=== PATIENT | male | born 1975 | race Caucasian/White ===

== ENCOUNTER 2018-06-15 07:36 | Emergency (ER) | payer BC ==
[2018-06-15 08:29] LABS: Absolute Lymphocytes (CBC) 3.9 K/uL (0.7-4.9); Absolute Monocytes 0.6 K/uL (0.1-1.3); Absolute Neutrophil 4.6 K/uL (1.8-8.0); Basophils % 0.6 % (0-1.3); Eosinophils % 3.1 % (0-4.4); Hematocrit 43.8 % (39.6-49.0); Lymphocytes % 41.1 % (15.3-44.8); MCH 25.7 pg (27.0-35.0); MCV 79.1 fL (80-100); MPV 8.2 fL (7.6-11.3); Monocytes % 6.6 % (3.3-12.3); RBC Red Blood Cell Count 5.55 M/uL (4.33-5.43)
[2018-06-15 08:52] LABS: ALT/SGPT 42 U/L (12-78); AST/SGOT 53 U/L (15-37); Albumin 3.5 g/dL (3.4-5.0); Alkaline Phosphatase 47 U/L (45-117); BUN Blood Urea Nitrogen 14 mg/dL (7-18); Bicarbonate 26 mmol/L (21-32); Bilirubin Direct < 0.1 mg/dL (0-0.2); Bilirubin Total 0.2 mg/dL (0.2-1.0); Glucose Level 95 mg/dL (74-106); Potassium 3.8 mmol/L (3.5-5.1); Protein, Total 6.9 g/dL (6.4-8.2); Sodium Level 140 mmol/L (136-145); Troponin (Emerg Dept Use Only) < 0.02 ng/mL (0.0-0.045)
--- NOTE | 2018-06-15 09:24 | ER ---
Nurse's Notes [facility] Name: Vic Frankel Jr Age: 43 yrs Sex: Male : 1975 Arrival Date: 06/15/2018 Time: 07:37 Bed 17 Private MD: Stewart Iarheta Diagnosis: Chest pain, unspecified Presentation: 06/15 07:45 Presenting complaint: Patient states: unable to sleep last night, hear heart pounding ss in ears/ head, pressure feeling in neck and episodic sharp pains in chest that began 0300. Transition of care: patient was not received from another setting of care. Onset of symptoms was June 14, 2018. Risk Assessment: Do you want to hurt yourself or someone else? Patient reports no desire to harm self or others. Initial Sepsis Screen: Does the patient meet any 2 criteria? No. Patient's initial sepsis screen is negative. Does the patient have a suspected source of infection? No. Patient's initial sepsis screen is negative. Care prior to arrival: None. 07:45 Method Of Arrival: Ambulatory ss 07:45 Acuity: TRISH 3 ss Historical: - Allergies: 07:47 No Known Allergies; ss - Home Meds: 07:47 Testosterone replacement [Active]; ss - PMHx: 07:47 Low testosterone; ss - PSHx: 07:47 R knee repair; ss - Immunization history:: Adult Immunizations up to date. - Social history:: Smoking status: Patient uses tobacco products, chewing tobacco. - Ebola Screening: : Patient denies exposure to infectious person Patient denies travel to an Ebola-affected area in the 21 days before illness onset. Screenin:48 Abuse screen: Denies threats or abuse. Denies injuries from another. Nutritional ss screening: No deficits noted. Tuberculosis screening: Never had TB. Fall Risk None identified. Assessment: 08:08 General: Appears in no apparent distress. comfortable, Behavior is calm, cooperative, em appropriate for age, Reports Denies fever. Pain: Denies pain. Neuro: Level of Consciousness is awake, alert, obeys commands, Oriented to person, place, time, situation, Reports headache Denies weakness dizziness. Cardiovascular: Reports nausea, palpitations, "chest pressure" Denies diaphoresis, lightheadedness, shortness of breath, Heart tones S1 S2 present Capillary refill < 3 seconds Patient's skin is warm and dry. Respiratory: Airway is patent Respiratory effort is even, unlabored, Respiratory pattern is regular, symmetrical, Breath sounds are clear bilaterally. Denies cough, pain with respiration. GI: Abdomen is flat, Reports nausea, Patient currently denies vomiting. : No signs and/or symptoms were reported regarding the genitourinary system. Derm: Skin is intact, Skin is pink, warm \\T\\ dry. Musculoskeletal: Circulation, motion, and sensation intact. Range of motion: intact in all extremities. 09:13 Reassessment: Patient appears in no apparent distress at this time. Patient and/or em family updated on plan of care and expected duration. Pain level reassessed. Patient is alert, oriented x 3, equal unlabored respirations, skin warm/dry/pink. Patient denies pain at this time. Vital Signs: 07:47 BP 142 / 97; Pulse 63; Resp 16; Pulse Ox 98% on R/A; Weight 94.8 kg; Height 5 ft. 7 in. ss (170.18 cm); Pain 0/10; 08:27 BP 130 / 87; Pulse 54; Resp 16; Pulse Ox 100% on R/A; Pain 0/10; em 09:14 BP 116 / 62; Pulse 51; Resp 20 S; Pulse Ox 96% on R/A; Pain 0/10; em 07:47 Body Mass Index 32.73 (94.80 kg, 170.18 cm) ss ED Course: 07:37 Patient arrived in ED. mr 07:37 Stewart Iraheta MD is Private Physician. mr 07:46 Triage completed. ss 07:47 Arm band placed on right wrist. ss 07:48 Patient has correct armband on for positive identification. Placed in gown. Bed in low ss position. Call light in reach. Side rails up X 1. cook roast on. Pulse ox on. NIBP on. Warm blanket given. Head of bed elevated. 07:48 Patient maintains SpO2 saturation greater than 95% on room air. ss 07:49 Nickolas Cline LVN is Primary Nurse. em 07:53 Rico Agarwal MD is Attending Physician. gs 08:16 Initial lab(s) drawn, by me, sent to lab. Inserted saline lock: 20 gauge in right em antecubital area, using aseptic technique. Blood collected. 08:36 XRAY Chest (1 view) In Process Unspecified. EDMS 10:13 No provider procedures requiring assistance completed. IV discontinued, intact, la1 bleeding controlled, No redness/swelling at site. Pressure dressing applied. Administered Medications: No medications were administered Outcome: 09:23 Discharge ordered by . 10:13 Discharged to home ambulatory. la1 10:13 Condition: stable 10:13 Discharge instructions given to patient, Instructed on discharge instructions, follow up and referral plans. medication usage, Demonstrated understanding of instructions, follow-up care. 10:13 Patient left the ED. la1 Signatures: Dispatcher [employer] EDMI FranzDesirae jackson mr Son, Nickolas, PNEUMATIC RIVETER PNEUMATIC RIVETER Makenzie Rucker RN RN ss Attema, Lee, RN RN la1 Rico Agarwal MD MD
--- NOTE | 2018-06-15 09:24 | EDPHYS ---
Physician Documentation [facility] Name: Vic Frankel Jr Age: 43 yrs Sex: Male : 1975 Arrival Date: 06/15/2018 Time: 07:37 Bed 17 Private MD: Stewart Iraheta ED Physician Rico Agarwal HPI: 06/15 12:16 This 43 yrs old Male presents to ER via Ambulatory with complaints of Chest gs Pain. 12:16 The patient or guardian reports chest pain that is located primarily in the anterior gs chest wall. Onset: this morning. The pain does not radiate. Associated signs and symptoms: Pertinent negatives: abdominal pain, cough, diaphoresis, dizziness, lower extremity swelling, lightheadedness, nausea, shortness of breath, syncope, vomiting. The chest pain is described as dull. Duration: The patient or guardian reports multiple episodes, that are intermittent, that wax and wane, with no pattern, the episodes last approximately 5 second(s). Modifying factors: the symptoms are aggravated by twisting torso. Severity of pain: At its worst the pain was moderate in the emergency department the pain has resolved. The patient has not experienced similar symptoms in the past. Historical: - Allergies: 07:47 No Known Allergies; ss - Home Meds: 07:47 Testosterone replacement [Active]; ss - PMHx: 07:47 Low testosterone; ss - PSHx: 07:47 R knee repair; ss - Immunization history:: Adult Immunizations up to date. - Social history:: Smoking status: Patient uses tobacco products, chewing tobacco. - Ebola Screening: : Patient denies exposure to infectious person Patient denies travel to an Ebola-affected area in the 21 days before illness onset. ROS: 12:16 All other systems are negative. gs Exam: 12:16 Head/Face: Normocephalic, atraumatic. Eyes: Pupils equal round and reactive to light, gs extra-ocular motions intact. Lids and lashes normal. Conjunctiva and sclera are non-icteric and not injected. Cornea within normal limits. Periorbital areas with no swelling, redness, or edema. ENT: Nares patent. No nasal discharge, no septal abnormalities noted. Tympanic membranes are normal and external auditory canals are clear. Oropharynx with no redness, swelling, or masses, exudates, or evidence of obstruction, uvula midline. Mucous membranes moist. Neck: Trachea midline, no thyromegaly or masses palpated, and no cervical lymphadenopathy. Supple, full range of motion without nuchal rigidity, or vertebral point tenderness. No Meningismus. Chest/axilla: Normal chest wall appearance and motion. Nontender with no deformity. No lesions are appreciated. Cardiovascular: Regular rate and rhythm with a normal S1 and S2. No gallops, murmurs, or rubs. Normal PMI, no JVD. No pulse deficits. Respiratory: Lungs have equal breath sounds bilaterally, clear to auscultation and percussion. No rales, rhonchi or wheezes noted. No increased work of breathing, no retractions or nasal flaring. Abdomen/GI: Soft, non-tender, with normal bowel sounds. No distension or tympany. No guarding or rebound. No evidence of tenderness throughout. Back: No spinal tenderness. No costovertebral tenderness. Full range of motion. Skin: Warm, dry with normal turgor. Normal color with no rashes, no lesions, and no evidence of cellulitis. MS/ Extremity: Pulses equal, no cyanosis. Neurovascular intact. Full, normal range of motion. Neuro: Awake and alert, GCS 15, oriented to person, place, time, and situation. Cranial nerves II-XII grossly intact. Motor strength 5/5 in all extremities. Sensory grossly intact. Cerebellar exam normal. Normal gait. 12:16 Constitutional: The patient appears alert, awake. 12:16 ECG was reviewed by the Attending Physician. Vital Signs: 07:47 BP 142 / 97; Pulse 63; Resp 16; Pulse Ox 98% on R/A; Weight 94.8 kg; Height 5 ft. 7 in. ss (170.18 cm); Pain 0/10; 08:27 BP 130 / 87; Pulse 54; Resp 16; Pulse Ox 100% on R/A; Pain 0/10; em 09:14 BP 116 / 62; Pulse 51; Resp 20 S; Pulse Ox 96% on R/A; Pain 0/10; em 07:47 Body Mass Index 32.73 (94.80 kg, 170.18 cm) ss MDM: 08:18 Patient medically screened. gs 12:16 Differential diagnosis: acute myocardial infarction, coronary artery disease chest wall gs pain. Data reviewed: vital signs, nurses notes, lab test result(s), EKG, radiologic studies. Counseling: I had a detailed discussion with the patient and/or guardian regarding: the presence of at least one elevated blood pressure reading (>120/80) during this emergency department visit. Response to treatment: the patient's symptoms have resolved after treatment, the patient's pain is gone. Special discussion: I have referred the patient to see his PCP for further evaluation of high blood pressure. 06/15 08:10 Order name: Basic Metabolic Panel; Complete Time: 09:13 06/15 08:10 Order name: CBC with Diff; Complete Time: 09: 06/15 08:10 Order name: LFT's; Complete Time: : 06/15 08:10 Order name: Troponin (emerg Dept Use Only); Complete Time: 09: 06/15 08:10 Order name: XRAY Chest (1 view) 06/15 08:10 Order name: EKG; Complete Time: 08:11 06/15 08:10 Order name: Cardiac monitoring; Complete Time: 08:14 06/15 08:10 Order name: EKG - Nurse/Tech; Complete Time: 08:14 06/15 08:10 Order name: IV Saline Lock; Complete Time: 08:25 06/15 08:10 Order name: Labs collected and sent; Complete Time: 08:25 06/15 08:10 Order name: O2 Per Protocol; Complete Time: 08:15 06/15 08:10 Order name: O2 Sat Monitoring; Complete Time: 08:15 EC:16 Rate is 55 beats/min. Rhythm is regular. WI interval is normal. QRS interval is normal. QT interval is normal. T waves are Normal. No ST changes noted. Clinical impression: Normal ECG. Interpreted by me. Administered Medications: No medications were administered Disposition: 06/15/18 09:23 Discharged to Home. Impression: Chest pain, unspecified. - Condition is Stable. - Discharge Instructions: Nonspecific Chest Pain. - Medication Reconciliation Form, Thank You Letter, Antibiotic Education, Prescription Opioid Use form. - Follow up: Private Physician; When: 2 - 3 days; Reason: Re-evaluation by your physician. Signatures: Dispatcher [facility] Makenzie Becker RN RN ss Guy Bird RN RN la1 Rico Agarwal MD MD gs Corrections: (The following items were deleted from the chart) 10:13 09:23 06/15/2018 09:23 Discharged to Home. Impression: Chest pain, unspecified. la1 Condition is Stable. Forms are Medication Reconciliation Form, Thank You Letter, Antibiotic Education, Prescription Opioid Use. Follow up: Private Physician; When: 2 - 3 days; Reason: Re-evaluation by your physician. gs
--- NOTE | 2018-06-15 10:22 | RAD REPORT ---
EXAM DESCRIPTION: RAD - Chest Single View - 06/15/2018 8:36 am CLINICAL HISTORY: CHEST PAIN Chest pain. COMPARISON: No comparisons FINDINGS: Portable technique limits examination quality. The lungs are grossly clear. The heart is normal in size. No displaced fractures. IMPRESSION: No acute intrathoracic process suspected.
--- NOTE | 2018-06-15 20:21 | EKG ---
Test Date: 2018-06-15 Test Time: 08:12:34 Marketing Director: NEELAM MEASUREMENT RESULTS: Intervals: Rate: 55 IN: 184 QRSD: 84 QT: 380 QTc: 363 [place]: P: 52 IN: 184 QRS: 1 T: 34 INTERPRETIVE STATEMENTS: Sinus bradycardia Otherwise normal ECG Compared to ECG 10/08/1999 03:19:00 Myocardial infarct finding no longer present Electronically Signed On 06-15-18 20:20:28 BAND RIPSAW OPERATOR by Chidi Bardales
== END 2018-06-15 10:13 | disposition home or self-care (01) ==
LOC: ER 07:36
DX: R07.9 Chest pain, unspecified (principal); R00.1 Bradycardia, unspecified; F17.220 Nicotine dependence, chewing tobacco, uncomplicated
CPT/HCPCS: 36415; 71045; 80048; 80076; 84484; 85025; 93005; 99285

== ENCOUNTER 2024-12-07 11:41 | Inpatient (IN) | payer BC ==
[2024-12-07 12:28] LABS: Hemoglobin 16.3 g/dL (13.6-17.9); Lymphocytes % 16.6 % (15.3-44.8); MCH 24.4 pg (27.0-35.0); MCHC 32.6 g/dL (32.0-36.0); MCV 74.9 fL (80-100); MPV 7.9 fL (7.6-11.3); Neutrophils % 77.8 % (41.7-73.7); Platelets 224 thou/uL (152-406); RBC Red Blood Cell Count 6.68 M/uL (4.33-5.43); Red Cell Distribution Width 18.1 % (12.1-15.2)
[2024-12-07 12:29] LABS: Absolute Lymphocytes (CBC) 1.7 K/uL (0.7-4.9); Absolute Monocytes 0.5 K/uL (0.1-1.3); Absolute Neutrophil 8.1 K/uL (1.8-8.0); Basophils % 0.2 % (0-1.3); Eosinophils % 0.2 % (0-4.4); Monocytes % 5.2 % (3.3-12.3); Nucleated Red Blood Cells % 0.1 % (0-0)
[2024-12-07 12:45] LABS: Albumin/Globulin Ratio 1.2 (1.1-1.8); Anion Gap 8.1 mEq/L (5.0-15.0); Bilirubin Total 0.5 mg/dL (0.2-1.0); Globulin 3.4 g/dL (2.3-3.5); Potassium 4.1 mEq/L (3.5-5.1); Protein, Total 7.4 g/dL (6.4-8.2)
[2024-12-07 12:48] LABS: Specific Gravity 1.023 (1.005-1.030); Sqamous Epithelial None Seen /HPF (None Seen); Urine Bacteria None Seen /HPF (<20); Urine Bilirubin NEGATIVE (Negative); Urine Blood Negative (Negative); Urine Clarity Clear (Clear); Urine Color Yellow (Yellow); Urine Culture Reflex Order NOT NEEDED; Urine Glucose NEGATIVE (Negative); Urine Ketones NEGATIVE (Negative); Urine Microscopic Reflex YN ORDER UMIC; Urine Mucus 2+ /HPF (None Seen); Urine Nitrite NEGATIVE (Negative); Urine Protein TRACE (Negative); Urine RBC <5 /HPF (None Seen); Urine Urobilinogen 1+ (Normal); Urine WBC <5 /HPF (<5)
[2024-12-07] MEDS ORDERED: ONDANSETRON 4 MG/2 ML VIAL ONE (13:01)
[2024-12-07] MEDS ORDERED: MORPHINE 4 MG/ML SYR ONE (13:02)
--- NOTE | 2024-12-07 13:39 | RAD REPORT ---
EXAMINATION: CT ABDOMEN AND PELVIS WITH CONTRAST CLINICAL INDICATION: Abdominal pain TECHNIQUE: CT abdomen and pelvis was performed, after the administration of 100 cc Isovue-300.. Sagit ortiz and coronal reconstructions were obtained. One or more of the following dose reduction techniques were used: Automated exposure control, adjustment of the mA and kV according to patient si ze, and iterative reconstruction. Unless otherwise specified, incidental findings do not require dedicated imaging follow-up. [id number]. Oral contrast was not given which limits evaluation of bowel and appendix. COMPARISON: .None FINDINGS: Liver, spleen, pancreas, adrenals and kidneys appear unremarkable Normal appendix. Small umbilical hernia Small right inguinal hernia contains fat Several diverticula stem from colon. Mild stranding adjacent to the proximal sigmoid colon. A tiny ai r bubble lies adjacent to the sigmoid colon indicating a microperforation. It is contained within the sigmoid mesocolon. No free air into the peritoneal cavity. No abscess: IMPRESSION: Microperforation of a sigmoid diverticulum with mild adjacent inflammatory changes.
--- NOTE | 2024-12-07 14:42 | ER ---
Nurse's Notes [facility] Name: Vic Frankel Jr Age: 49 yrs Sex: Male : 1975 Arrival Date: 12/07/2024 Time: 11:41 Bed 24 Private MD: Diagnosis: Sigmoid diverticulitis with microperforation;Lower abdominal pain, unspecified Presentation: 12/07 11:54 Chief complaint: Sharp RLQ pain up waking 1 hour ago. Coronavirus screen: At this time, hb the client does not indicate any symptoms associated with coronavirus-19. Ebola Screen: No symptoms or risks identified at this time. Initial Sepsis Screen: Does the patient meet any 2 criteria? No. Patient's initial sepsis screen is negative. Does the patient have a suspected source of infection? No. Patient's initial sepsis screen is negative. Risk Assessment: Do you want to hurt yourself or someone else? Patient reports no desire to harm self or others. Onset of symptoms was December 07, 2024. 11:54 Method Of Arrival: Ambulatory hb 11:54 Acuity: TRISH 3 hb Historical: - Allergies: 11:55 No Known Allergies; hb - PMHx: 11:55 low testosterone; hb - PSHx: 11:56 None; hb - Immunization history:: Adult Immunizations up to date. - Infectious Disease History:: Denies. - Social history:: Smoking status: Patient denies any tobacco usage or history of. Screenin:10 [facility] ED Fall Risk Assessment (Adult) History of falling in the last 3 months, dd2 including since admission No falls in past 3 months (0 pts) Confusion or Disorientation No (0 pts) Intoxicated or Sedated No (0 pts) Impaired Gait No (0 pts) Mobility Assist Device Used No (0 pt) Altered Elimination No (0 pt) Score/Fall Risk Level 0 - 2 = Low Risk Oriented to surroundings, Maintained a safe environment, Educated pt \T\ family on fall prevention, incl call for assistance when getting out of bed, Assessed \T\ reinforced patient's understanding of fall precautions, Hourly rounding (assess needs \T\ fall precautionary measures) done. Abuse screen: Denies threats or abuse. Denies injuries from another. Nutritional screening: No deficits noted. Tuberculosis screening: No symptoms or risk factors identified. Assessment: 12:10 General: Appears in no apparent distress. uncomfortable, Behavior is calm, cooperative, dd2 appropriate for age. Pain: Complains of pain in right lower quadrant Pain does not radiate. Pain currently is 4 out of 10 on a pain scale. at worst was 8 out of 10 on a pain scale. Neuro: No deficits noted. Level of Consciousness is awake, alert, obeys commands, Oriented to person, place, time, situation, Appropriate for age. Cardiovascular: No deficits noted. Patient's skin is warm and dry. Respiratory: No deficits noted. Airway is patent Respiratory effort is even, unlabored, Respiratory pattern is regular, symmetrical. GI: Abdomen is non-distended, obese, Bowel sounds present X 4 quads. Abd is soft X 4 quads Abdomen is tender to palpation in right lower quadrant Abdomen has rebound tenderness in right lower quadrant Reports lower abdominal pain, nausea. : No deficits noted. No signs and/or symptoms were reported regarding the genitourinary system. EENT: No deficits noted. No signs and/or symptoms were reported regarding the EENT system. Derm: No deficits noted. No signs and/or symptoms reported regarding the dermatologic system. Musculoskeletal: No deficits noted. No signs and/or symptoms reported regarding the musculoskeletal system. Circulation, motion, and sensation intact. Range of motion: intact in all extremities. 13:57 Reassessment: Patient and/or family updated on plan of care and expected duration. Pain dd2 level reassessed. Patient is alert, oriented x 3, equal unlabored respirations, skin warm/dry/pink. Patient states symptoms have improved. Vital Signs: 11:54 BP 125 / 83; Pulse 68; Resp 16; Temp 98.7; Pulse Ox 100% on R/A; Weight 90.72 kg; hb Height 5 ft. 7 in. ; Pain 8/10; 13:15 BP 128 / 85; Pulse 72; Resp 16; Pulse Ox 99% on R/A; dd2 14:10 BP 118 / 83; Pulse 78; Resp 16; Pulse Ox 98% on R/A; dd2 15:25 BP 125 / 84; Pulse 75; Resp 15; Pulse Ox 96% on R/A; dd2 16:30 BP 126 / 80; Pulse 75; Resp 16; Pulse Ox 98% on R/A; dd2 17:30 BP 117 / 78; Pulse 73; Resp 16; Pulse Ox 99% on R/A; dd2 11:54 Body Mass Index 31.32 (90.72 kg, 170.18 cm) hb 11:54 Pain Scale: Adult hb [place] Coma Score: 12:10 Eye Response: spontaneous(4). Motor Response: obeys commands(6). Verbal Response: dd2 oriented(5). Total: 15. ED Course: 11:43 Patient arrived in ED. al6 11:46 Esau Pattesron DO is Attending Physician. ms3 11:55 Triage completed. hb 12:10 Patient has correct armband on for positive identification. Bed in low position. Call dd2 light in reach. Side rails up X 1. Provided Education on: PROCEDURES, LABS, . Client placed on continuous cardiac and pulse oximetry monitoring. NIBP monitoring applied. Door closed. Noise minimized. Warm blanket given. Pillow given. Verbal reassurance given. 12:23 DESIRAE BROWN, RN is Primary Nurse. dd2 12:23 No provider procedures requiring assistance completed. Initial lab(s) drawn, by me, dd2 sent to lab. Urine collected: clean catch specimen, clear. Inserted saline lock: 20 gauge in left antecubital area, using aseptic technique. Blood collected. Flushed with 10 mL NS. Patient maintains SpO2 saturation greater than 95% on room air. 12:23 CBC with Diff Sent. dd2 12:23 CMP Sent. dd2 12:23 UA Rfx Obey Cult if indicated Sent. dd2 13:15 CT Abd/Pelvis - IV Contrast Only In Process Unspecified. EDMS 14:41 Emilia Valerio MD is Hospitalizing Provider. ms3 18:10 Patient admitted, IV remains in place. dd2 Administered Medications: 13:06 Drug: morphine IVP or IV 4 mg IVP once over 4 mins Route: IVP; Infused Over: 4 mins; dd2 Site: left antecubital; 13:21 Follow up: Response: No adverse reaction dd2 13:06 Drug: Ondansetron IVP 4 mg IVP once; over 2 minutes Route: IVP; Site: left antecubital; dd2 13:21 Follow up: Response: No adverse reaction dd2 15:10 Drug: Piperacillin-Tazobactam IVPB 3.375 grams IVPB once over 60 mins; (mix in NS 100 dd2 mL) Route: IVPB; Infused Over: 60 mins; Site: left antecubital; 16:10 Follow up: IV Status: Completed infusion dd2 15:10 Drug: NS 0.9% IV 1000 ml IV at 125 ml/hr continuous; to be given as a bolus over 60 dd2 minutes Route: IV; Rate: 125 ml/hr; Site: left antecubital; 18:11 Follow up: IV Status: Infusion continued upon transfer dd2 Medication: 12:10 VIS not applicable for this client. dd2 Outcome: 14:42 Decision to Hospitalize by Provider. ms3 18:10 Admitted to ER Hold. Please see [facility] for further documentation. dd2 18:10 Condition: stable 18:10 Instructed on the need for admit, Demonstrated understanding of instructions, 20:57 Patient left the ED. vc1 Signatures: Dispatcher [employer] EDMS Jessica Hassan RN RN hb Sims, Marcus, DO ms3 Sho Tineo RN RN vc1 DESIRAE BROWN RN RN dd2 Breanne Adamson al6
--- NOTE | 2024-12-07 14:42 | EDPHYS ---
Physician Documentation [facility] Name: Vic Frankel Jr Age: 49 yrs Sex: Male : 1975 Arrival Date: 12/07/2024 Time: 11:41 Bed 24 Private MD: ED Physician Esau Patterson HPI: 12/07 11:59 This 49 yrs old Male presents to ER via Ambulatory with complaints of Abdominal Pain. [facility] 11:59 49-year-old male with past medical history of low testosterone presents to the [facility] emergency department for right lower quadrant abdominal pain that began on waking up. Patient states his pain is 7/10 and does not radiate. He denies nausea, vomiting. Patient's last oral intake was at 1 AM. He denies fevers or chills.. Historical: - Allergies: 11:55 No Known Allergies; hb - PMHx: 11:55 low testosterone; hb - PSHx: 11:56 None; hb - Immunization history:: Adult Immunizations up to date. - Infectious Disease History:: Denies. - Social history:: Smoking status: Patient denies any tobacco usage or history of. ROS: 11:59 Constitutional: Negative for fever, and chills. Cardiovascular: Negative for chest ms3 pain, and palpitations. Respiratory: Negative for shortness of breath, cough, wheezing, and pleuritic chest pain, 11:59 Abdomen/GI: Positive for abdominal pain, Negative for nausea, vomiting, and diarrhea, Exam: 11:59 Constitutional: This is a well developed, well nourished patient who is awake, alert, ms3 and in no acute distress. Cardiovascular: Regular rate and rhythm with a normal S1 and S2. No gallops, murmurs, or rubs. Normal PMI, no JVD. No pulse deficits. Respiratory: Lungs have equal breath sounds bilaterally, clear to auscultation and percussion. No rales, rhonchi or wheezes noted. No increased work of breathing, no retractions or nasal flaring. Skin: Warm, dry with normal turgor. Normal color with no rashes, no lesions, and no evidence of cellulitis. 11:59 Abdomen/GI: Inspection: abdomen appears normal, Bowel sounds: normal, Palpation: moderate abdominal tenderness, in the right lower quadrant, Vital Signs: 11:54 BP 125 / 83; Pulse 68; Resp 16; Temp 98.7; Pulse Ox 100% on R/A; Weight 90.72 kg; hb Height 5 ft. 7 in. ; Pain 8/10; 13:15 BP 128 / 85; Pulse 72; Resp 16; Pulse Ox 99% on R/A; dd2 14:10 BP 118 / 83; Pulse 78; Resp 16; Pulse Ox 98% on R/A; dd2 15:25 BP 125 / 84; Pulse 75; Resp 15; Pulse Ox 96% on R/A; dd2 16:30 BP 126 / 80; Pulse 75; Resp 16; Pulse Ox 98% on R/A; dd2 17:30 BP 117 / 78; Pulse 73; Resp 16; Pulse Ox 99% on R/A; dd2 11:54 Body Mass Index 31.32 (90.72 kg, 170.18 cm) hb 11:54 Pain Scale: Adult hb Magali Coma Score: 12:10 Eye Response: spontaneous(4). Motor Response: obeys commands(6). Verbal Response: dd2 oriented(5). Total: 15. MDM: 11:58 Medical Screening Exam initiated ms3 11:59 Differential diagnosis: appendicitis, bowel obstruction, myocardia ischemia or ms3 infarction, urinary tract infection. 16:08 Data reviewed: vital signs, nurses notes, lab test result(s), radiologic studies, CT ms3 scan, and as a result, I will admit patient. Consideration of Admission/Observation Patient was admitted/placed on observation. Management of patient was discussed with the following: Hospitalist: Dr Valerio. Manager Plan: Dr Patel. I considered the following discharge prescriptions or medication management in the emergency department Medications were administered in the Emergency Department. See MAR. Counseling: I had a detailed discussion with the patient and/or guardian regarding the historical points, exam findings, and any diagnostic results supporting the discharge/admit diagnosis, lab results, radiology results, the need for further work-up and treatment in the hospital. ED course: Discussed CT and lab findings with patient. Patient to patient understands and agrees with admission. All questions were answered. Discussed case with Dr. Patel and patient is to remain n.p.o. for gut healing.. 12/07 11:58 Order name: CBC with Diff; Complete Time: 13:27 ms3 12/07 11:58 Order name: CMP; Complete Time: 13:27 ms3 12/07 11:58 Order name: UA Rfx Obey Cult if indicated; Complete Time: 13:27 ms3 12/07 15:31 Order name: UA Rfx Obey Cult if indicated EDMS 12/07 15:31 Order name: Basic Metabolic Panel EDMS 12/07 15:31 Order name: Basic Metabolic Panel EDMS 12/07 15:31 Order name: Basic Metabolic Panel EDMS 12/07 15:31 Order name: Basic Metabolic Panel EDMS 12/07 15:31 Order name: CBC with Automated Diff EDMS 12/07 15:31 Order name: CBC with Automated Diff EDMS 12/07 15:31 Order name: CBC with Automated Diff EDMS 12/07 15:31 Order name: CBC with Automated Diff EDMS 12/07 15:31 Order name: Magnesium EDMS 12/07 15:31 Order name: Magnesium EDMS 12/07 15:31 Order name: Magnesium EDMS 12/07 15:31 Order name: Magnesium EDMS 12/07 11:58 Order name: CT Abd/Pelvis - IV Contrast Only; Complete Time: 14:30 ms3 12/07 15:27 Order name: CONS Physician Consult EDMS 12/07 11:58 Order name: IV Saline Lock; Complete Time: 12:23 ms3 12/07 11:58 Order name: Labs collected and sent; Complete Time: 12:23 ms3 Administered Medications: 13:06 Drug: morphine IVP or IV 4 mg IVP once over 4 mins Route: IVP; Infused Over: 4 mins; dd2 Site: left antecubital; 13:21 Follow up: Response: No adverse reaction dd2 13:06 Drug: Ondansetron IVP 4 mg IVP once; over 2 minutes Route: IVP; Site: left antecubital; dd2 13:21 Follow up: Response: No adverse reaction dd2 15:10 Drug: Piperacillin-Tazobactam IVPB 3.375 grams IVPB once over 60 mins; (mix in NS 100 dd2 mL) Route: IVPB; Infused Over: 60 mins; Site: left antecubital; 16:10 Follow up: IV Status: Completed infusion dd2 15:10 Drug: NS 0.9% IV 1000 ml IV at 125 ml/hr continuous; to be given as a bolus over 60 dd2 minutes Route: IV; Rate: 125 ml/hr; Site: left antecubital; 18:11 Follow up: IV Status: Infusion continued upon transfer dd2 Disposition Summary: 12/07/24 14:42 Hospitalization Ordered Notes: Hospitalization Status: Inpatient Admission ms3 Provider: Emilia Valerio ms3 Condition: Stable ms3 Problem: new ms3 Symptoms: are unchanged ms3 Bed/Room Type: Standard ms3 Location: Telemetry/MedSurg (Inpatient)(12/07/24 19:42) vk Room Assignment: 425(12/07/24 19:43) vk Diagnosis - Sigmoid diverticulitis with microperforation ms3 - Lower abdominal pain, unspecified ms3 Forms: - Medication Reconciliation Form ms3 - SBAR form ms3 - Leadership Thank You Letter ms3 Signatures: Dispatcher [employer] EDMS Jessica Hassan RN RN Esau Patiño, DO ms3 Carolina Sanders RN RN kb3 Pooja Hernandez DIANA, RN RN dd2 Corrections: (The following items were deleted from the chart) 16:08 14:42 Telemetry/MedSurg (Inpatient) ms3 kb3 16:08 14:42 ms3 kb3 19:42 16:08 [facility] ER HOLD kb3 vk 19:42 16:08 ERHOLD- kb3 vk 19:43 19:42 vk vk
[2024-12-07] MEDS ORDERED: PIPERACIL/TAZO 3.375 GM VIAL IV ONE (14:57)
[2024-12-07] MEDS ORDERED: NA CHLORIDE 0.9% 100 ML ONE (14:57)
[2024-12-07] MEDS ORDERED: NA CHLORIDE 0.9% 1,000 ML ONE (14:57)
--- NOTE | 2024-12-07 15:23 | P.HP ---
Certification for Inpatient Patient admitted to: Inpatient Practitioner: I am a practitioner with admitting privileges, knowledge of patient current condition, hospital course, and medical plan of care. Services: Services provided to patient in accordance with Admission requirements found in Title 42 Section 412.3 of the Code of Federal Regulations Patient History Date of Service: 12/07/24 Reason for admission: Abdominal pain History of Present Illness: 49-year-old male with a past medical history of low testosterone, presents to the emergency room with abdominal pain. He reports lower quadrant abdominal pain started after waking up this morning pain 7 out of 10. Nonradiating. He denied fever, nausea vomiting. He reports last p.o. intake at 1 AM. He denies ever having the symptoms before. CT scan of the abdomen revealed small umbilical hernia, microperforation of the sigmoid diverticulum with adjacent mild adjacent changes. No leukocytosis, elevated hemoglobin at 50.0, MCV low at 74.9, neutrophils 77.9, UA unremarkable. Plan to admit for sigmoid diverticulitis with microperforation, lower abdominal pain. With surgery to consult - Past Medical/Surgical History -: Low testosterone -: Knee surgery -: Arm surgery - Social History Smoking Status: Current some day smoker Alcohol use: No Place of Residence: Home Review of Systems 10-point ROS is otherwise unremarkable Physical Examination - Physical Exam General: Alert, In no apparent distress, Oriented x3 HEENT: Atraumatic, Normocephalic Neck: Supple, 2+ carotid pulse no bruit Respiratory: Clear to auscultation bilaterally, Normal air movement Cardiovascular: No edema, Normal pulses, Regular rate/rhythm Capillary refill: <2 Seconds Gastrointestinal: Normal bowel sounds, Other (Lower quadrant tenderness) Musculoskeletal: No swelling, No contractures Integumentary: No breakdown, No significant lesion Neurological: Normal speech, Normal strength at 5/5 x4 extr, Normal tone - Studies Laboratory Data (last 24 hrs) 12/07/24 12/07/24 12:18 12:18 WBC 10.40 Hgb 16.3 Hct 50.0 H Plt Count 224 Sodium 137 Potassium 4.1 BUN 13 Creatinine 1.23 Glucose 122 H Total Bilirubin 0.5 AST 14 L ALT 29 Alkaline Phosphatase 44 L Assessment and Plan - Problems (Diagnosis) (1) Sigmoid diverticulitis Current Visit: Yes Status: Acute (2) Left lower quadrant abdominal pain Current Visit: Yes Status: Acute (3) Low testosterone Current Visit: Yes Status: Acute - Plan 1. surgery to consult 2. diet per surgery recommendation 3. ABX, PRN analgesics antiemetic 4. CT scan result reviewed shows microperforation of sigmoid diverticulitis 5. GI/DVT Discharge Plan: Home - Advance Directives Does patient have a Living Will: No Does patient have a Durable POA for Healthcare: No - Code Status/Comfort Care Code Status: Full Code Critical Care: No Time Spent Managing Pts Care (In Minutes): 55
[2024-12-07] MEDS ORDERED: ONDANSETRON 4 MG/2 ML VIAL IV PRN (15:27)
[2024-12-07] MEDS ORDERED: HYDROMORPHONE HCL 0.5 MG/0.5 ML INJ IV PRN (15:29)
[2024-12-07] MEDS: NA CHLORIDE 0.9% 1,000 ML IV SCH (16:00)
[2024-12-07] MEDS: PIPER TAZO 3.375 GM in NA CHLORIDE 0.9% 100 ML IV SCH (16:54)
[2024-12-07] MEDS ORDERED: PROMETHAZINE INJ 25 MG/ML AMP IV PRN (17:03)
[2024-12-07 17:50] VITALS: BMI 31.3
[2024-12-08] MEDS: MORPHINE 2 MG/ML SYR IV PRN (00:21)
[2024-12-08] MEDS: MORPHINE 4 MG/ML SYR IV PRN (05:17)
[2024-12-08 07:29] LABS: Absolute Eosinophils 0.1 K/uL (0-0.5); Absolute Monocytes 0.7 K/uL (0.1-1.3); Absolute Neutrophil 8.2 K/uL (1.8-8.0); Basophils % 0.2 % (0-1.3); Eosinophils % 0.5 % (0-4.4); Hematocrit 43.2 % (39.6-49.0); Hemoglobin 14.3 g/dL (13.6-17.9); Lymphocytes % 18.3 % (15.3-44.8); MCH 24.6 pg (27.0-35.0); MCHC 33.1 g/dL (32.0-36.0); MCV 74.6 fL (80-100); MPV 7.5 fL (7.6-11.3); Nucleated Red Blood Cells % 0.1 % (0-0); Platelets 190 thou/uL (152-406); RBC Red Blood Cell Count 5.79 M/uL (4.33-5.43); Red Cell Distribution Width 17.8 % (12.1-15.2)
[2024-12-08 07:42] LABS: Anion Gap 8.8 mEq/L (5.0-15.0); Magnesium 2.1 mg/dL (1.6-2.4); Potassium 3.8 mEq/L (3.5-5.1)
[2024-12-08] MEDS: NICOTINE 7 MG/PAT TD SCH (08:21)
[2024-12-08] MEDS: KCL 20 MEQ/100 mL IVPB 20 MEQ/100 ML BAG IV SCH (09:22)
[2024-12-08] MEDS ORDERED: PROMETHAZINE INJ 25 MG/ML AMP IV PRN (10:14)
[2024-12-08] MEDS ORDERED: PROMETHAZINE 25 MG TABLET PO PRN (10:48)
--- NOTE | 2024-12-08 12:57 | CON ---
Date of Consultation: 12/08/2024 Reason For Service: Diverticulitis with microperforation. History Of Present Illness: This is the case of a 49-year-old patient who came to us with 2 days his tory of abdominal pain, came to the ER since he was not feeling better, found to have sigmoid diverti culitis with microperforation. The patient was admitted to the hospital for IV antibiotics and a edith gical consult was obtained. He denies any previous colonoscopy ever. He has no medical doctors. He was advised the importance of colonoscopy when this is over and the importance also of following up with the primary doctor. He denies any dysuria, hematuria, hematochezia, or melena. He denies any r ecent traveling out of the country. He denies any family member sick at home. Past Medical History: None. Past Surgical History: Knee surgery and arm surgery. Social History: He smokes. He was advised the importance of smoking cessation. He does not drink a lcohol. Family History: Noncontributory. No history of colon cancer. Allergies: REVIEWED. Review of Systems: Nausea, abdominal pain. No fever. No vomiting. No dysuria. No hematochezia. No melena. Review of systems 10 points otherwise unremarkable. Physical Examination: Vital Signs: Reviewed. General: The patient is awake and alert. No distress. HEENT: Pupils are equal and reactive. Anicteric. Neck: Supple. Chest: Clear. Heart: S1, S2. Abdomen: Soft and depressible. Lower abdominal tenderness is on the pelvis and left lower quadrant. No rebound tenderness. Rectal: Deferred. Extremities: Good capillary refill. Laboratory Data: Blood work shows a WBC count of 10.4, hemoglobin of 16.3, and platelets of 224. Po tassium is 4.1, creatinine is 1.23. CAT scan of the abdomen and pelvis interpreted by Dr. Vivar as inflammation around the area of the sigmoid with diverticulum and a small bubble could be consistent with microperforation for sigmoid diverticulum with mild adjacent inflammatory changes. Assessment: This is a 49-year-old patient with diverticulitis, probably microperforation. The exten t of that is unknown at this moment. So, we are going to treat him as a microperforation. He has no previous colonoscopies. He understand the importance in the near future to have it done, since alth ough we believe that this may be caused by diverticulum, we cannot rule out a neoplasia. He understa nd. We explained to him for the last half an hour, the next week, the next few days, and the next mo nth and the followup in the future. The benefits, alternatives, and risks of emergent laparotomy wit h bowel resection, possible ostomy also explained and also if he improve with no surgery at this time , also we explained the benefits, alternatives, and risks of elective surgical resection of that area . All their questions were answered to their satisfaction. We are going to keep the patient NPO, on IV fluids. HM/MODL Voice ID: [id number] Report ID: [id number]
[2024-12-09 04:55] LABS: Absolute Eosinophils 0.2 K/uL (0-0.5); Absolute Monocytes 0.6 K/uL (0.1-1.3); Absolute Neutrophil 6.7 K/uL (1.8-8.0); Basophils % 0.2 % (0-1.3); Eosinophils % 1.6 % (0-4.4); Hematocrit 41.9 % (39.6-49.0); Lymphocytes % 21.4 % (15.3-44.8); MCHC 33.5 g/dL (32.0-36.0); MCV 74.6 fL (80-100); MPV 7.8 fL (7.6-11.3); Monocytes % 6.7 % (3.3-12.3); Neutrophils % 70.1 % (41.7-73.7); Platelets 179 thou/uL (152-406); RBC Red Blood Cell Count 5.62 M/uL (4.33-5.43); Red Cell Distribution Width 17.7 % (12.1-15.2)
[2024-12-09 05:08] LABS: Anion Gap 11.7 mEq/L (5.0-15.0); Magnesium 2.2 mg/dL (1.6-2.4); Potassium 3.7 mEq/L (3.5-5.1)
[2024-12-09] MEDS: KCL 20 MEQ/100 mL IVPB 20 MEQ/100 ML BAG IV SCH (08:07)
--- NOTE | 2024-12-09 14:33 | PN ---
Date of Progress Note: 12/09/2024 Diagnosis: Perforated diverticulitis. Subjective: Patient is doing better. No nausea. No vomiting. No shortness of breath. No chest pa in. Still have some left lower quadrant tenderness. Objective: Chest: Clear. Abdomen: Soft and depressible. No peritonitis. Extremities: Good capillary refill. Laboratory Data: Blood work shows WBC count 9.5 with hemoglobin of 14, potassium 3.7, glucose 73. X -rays still pending. Plan: He is taking sips of clears. Obviously to advance diet, we are going to wait at least until t omorrow and then review the x-rays. We once again discussed this week treatment and also the treatme nt down the road, which include colonoscopy, even may include elective surgery. He understands that. All the questions were answered to his satisfaction. SHAHZAD Voice ID: [id number] Report ID: [id number]
--- NOTE | 2024-12-09 16:27 | RAD REPORT ---
EXAM: XR Abdomen W Erect HISTORY: [facility] MAIN Perforated Diverticulitis COMPARISON: None FINDINGS: Single view of the abdomen shows a nonspecific, nonobstructive bowel gas pattern with mild stool burden throughout the colon. No evidence of free air. No suspicious calcifications are seen. The bones are unremarkable. IMPRESSION: No acute findings or evidence of free air on this radiograph.
[2024-12-10 04:52] LABS: Absolute Eosinophils 0.3 K/uL (0-0.5); Absolute Lymphocytes (CBC) 2.3 K/uL (0.7-4.9); Absolute Monocytes 0.5 K/uL (0.1-1.3); Absolute Neutrophil 4.1 K/uL (1.8-8.0); Basophils % 0.3 % (0-1.3); Eosinophils % 4.6 % (0-4.4); Hematocrit 46.3 % (39.6-49.0); Hemoglobin 15.3 g/dL (13.6-17.9); Lymphocytes % 31.8 % (15.3-44.8); MCH 24.9 pg (27.0-35.0); MCHC 33.1 g/dL (32.0-36.0); MPV 7.7 fL (7.6-11.3); Monocytes % 6.4 % (3.3-12.3); Neutrophils % 56.9 % (41.7-73.7); Nucleated Red Blood Cells % 0.1 % (0-0); Platelets 211 thou/uL (152-406); RBC Red Blood Cell Count 6.18 M/uL (4.33-5.43); Red Cell Distribution Width 18.5 % (12.1-15.2)
[2024-12-10 05:07] LABS: Anion Gap 9.1 mEq/L (5.0-15.0); Magnesium 2.3 mg/dL (1.6-2.4); Potassium 4.1 mEq/L (3.5-5.1)
--- NOTE | 2024-12-10 07:50 | RAD REPORT ---
EXAMINATION: CT ABDOMEN AND PELVIS WITH CONTRAST CLINICAL INDICATION: diverticulitis TECHNIQUE: CT abdomen and pelvis was performed, after the administration of IV contrast, as per [facility] protocol. Axial, sagittal and coronal reconstructions were obtained. One or more of the following dose reduction techniques were used: Automated exposure control, adjustment of the mA and k V according to patient size, and iterative reconstruction. Unless otherwise specified, incidental findings do not require dedicated imaging follow-up. COMPARISON: 12/07/2024 FINDINGS: LOWER CHEST: The visualized lung bases are clear. Small hiatal hernia. LIVER: Normal in size and contour. No focal lesion. Grossly unremarkable gallbladder. SPLEEN: Normal size. No focal lesion. PANCREAS: No mass, ductal dilation, or minerva-pancreatic fluid. ADRENALS: Normal; no mass. KIDNEYS: Normal size and contour. No hydronephrosis. GASTROINTESTINAL TRACT: Prominent sigmoid diverticulosis coli with moderate stool retention. There is moderate inflammatory changes seen involving a segment of the sigmoid colon in the lower abdomen measuring approximately 6 cm. This has moderately worsened since the comparison study. No abscess col lection seen. No significant free air, free fluid or evidence of bowel obstruction. APPENDIX: Normal appendix. LYMPH NODES: No lymphadenopathy. MUSCULOSKELETAL: Mild lower lumbar disc bulging. ADDITIONAL FINDINGS: Small fat-containing umbilical hernia. Small fat-containing right inguinal herni a. IMPRESSION: Moderate inflammatory changes are seen in the fat surrounding the sigmoid colon in the anterior midli ne pelvis. This segment of colon measures about 6 cm shows numerous diverticula. Acute diverticulitis would be the favored etiology. No abscess evident. Underlying mass can cause a similar appearance therefore follow-up colonoscopy would be recommended for direct visualization. The findings are moderately progressive compared to prior study.
[2024-12-11 09:29] VITALS: O2SAT 97
--- NOTE | 2024-12-11 15:41 | P.PN ---
Subjective Date of Service: 12/10/24 Chief Complaint: Abdominal pain Subjective: Improving Review of Systems General: Unremarkable Eyes: Unremarkable ENT: Unremarkable Respiratory: Unremarkable Cardiovascular: Unremarkable Gastrointestinal: Unremarkable Genitourinary: Unremarkable Physical Examination - Vital Signs Temperature: 98.0 F Blood Pressure: 119/85 Pulse: 72 Respirations: 16 Pulse Ox (%): 95 - Physical Exam General: Alert, Oriented x3, Cooperative HEENT: PERRLA Respiratory: Normal air movement Cardiovascular: Normal pulses Gastrointestinal: Soft and benign, No rebound, No guarding Musculoskeletal: No erythema, No tenderness, No warmth Integumentary: No rashes, No breakdown Neurological: Normal speech Assessment And Plan - Plan We expent again more than 30 minutes explaining not only the plan during this admission but also the next few week management including subsequent colonoscopy and maybe elective surgery by colorectal surgery. We also discussed diet and the importance of f/u at my office, compliance with antibiotic treatment, sign and symptoms he should be looking that may indicate coming back to ER when discharged.
[2024-12-11 16:04] VITALS: BP 127/79; TEMP 98.1
== END 2024-12-11 18:00 | disposition home or self-care (01) | DRG 392 ==
LOC: ER 11:41 → ERHOLD 15:23 → 4TH 20:02
PROVIDERS: ADMIT Hospitalist; ATTEND Hospitalist
DX: K57.20 Diverticulitis of large intestine with perforation and abscess without bleeding (principal); F17.200 Nicotine dependence, unspecified, uncomplicated
CPT/HCPCS: 36415; 74019; 74177; 80048; 80053; 81001; 83735; 85025; 96361; 96365; 96375; 99285; J2270; J2405; J2543; J3480; J7030; Q9967